=== PATIENT | male | born 1960 | race Caucasian/White ===

== ENCOUNTER 2016-10-16 11:11 | Emergency (ER) | payer BC ==
[~2016-10-16] VITALS: Ht 180.3 cm; Wt 121.3 kg
[2016-10-16] MEDS ORDERED: LISINOPRIL40 MG PO (14:32)
[2016-10-16] MEDS ORDERED: PRAVASTATIN SOD40 MG PO (14:33)
[2016-10-16] MEDS ORDERED: ULORIC40 MG PO (14:34)
[2016-10-16] MEDS ORDERED: MOTRIN600 MG PO (14:39)
[2016-10-16] MEDS ORDERED: PERCOCET 5/31 TABLET PO (14:39)
[2016-10-16 15:05] VITALS: BP 118/79
== END 2016-10-16 15:11 | disposition home or self-care (01) ==
LOC: EME 11:11
DX: M25.461 Effusion, right knee (principal); E78.5 Hyperlipidemia, unspecified; I10 Essential (primary) hypertension
CPT/HCPCS: 73564; 93971; 99281; 99284